=== PATIENT | female | born 1990 | race Caucasian/White ===

== ENCOUNTER 2017-06-11 21:12 | Inpatient (IN) | payer OTHER ==
[2017-06-11 23:18] LABS: ABNORMAL IP MESSAGE 1; HEMATOCRIT 40.5 % (37.0-47.0); HEMOGLOBIN 13.6 g/dl (12.0-16.0); MEAN CORPUSCULAR HEMOGLOBIN 27.9 pg (29.0-33.0); MEAN CORPUSCULAR HGB CONC 33.6 g/dl (32.0-37.0); MEAN PLATELET VOLUME 9.9 fl (7.4-10.4); PLATELET COUNT 298 10^3/UL (140-415); RED BLOOD COUNT 4.88 10^6/ul (4.20-5.40); RED CELL DISTRIBUTION WIDTH 13.7 % (11.5-14.5)
[2017-06-11 23:18] LABS: WHITE BLOOD COUNT 22.4 10^3/ul (4.8-10.8)
[2017-06-11] MEDS: ONDANSETRON 4 MG INJ IV (23:19)
[2017-06-11] MEDS: KETOROLAC 30 MG INJ IV (23:19)
[2017-06-11] MEDS: ACETAMINOPHEN 325 MG TAB PO (23:20)
[2017-06-11] MEDS: SOD CHLORIDE 0.9% 1,000 ML IV (23:20)
[2017-06-11] MEDS: morphine 4 MG/ML VIAL IV (23:20)
[2017-06-11 23:23] LABS: ADD MAN DIFF? YES; POSITIVE DIFF @See below
[2017-06-11 23:45] LABS: ALANINE AMINOTRANSFERASE 30 IU/L (13-69); ALBUMIN 4.5 g/dl (3.3-4.9); ALKALINE PHOSPHATASE 100 IU/L (42-121); ANION GAP 16 (8-16); ASPARTATE AMINO TRANSFERASE 17 IU/L (15-46); BILIRUBIN,INDIRECT 0.1 mg/dl (0-1.1); BILIRUBIN,TOTAL 0.1 mg/dl (0.2-1.3); BLOOD UREA NITROGEN 15 mg/dl (7-20); CALCIUM 9.4 mg/dl (8.4-10.2); CARBON DIOXIDE 23 mmol/L (21-31); CHLORIDE 105 mmol/L (97-110); CREATININE 0.62 mg/dl (0.44-1.00); GLUCOSE 111 mg/dl (70-220); LIPASE 102 U/L (23-300); POTASSIUM 3.8 mmol/L (3.5-5.1); SODIUM 140 mmol/L (135-144); TOTAL PROTEIN 7.5 g/dl (6.1-8.1)
[2017-06-12 00:29] LABS: ANISOCYTOSIS 2+ (0-0); BAND NEUTROPHILS #M 0.8 10^3/ul (0.0-0.6); BAND NEUTROPHILS % (M) 4 % (0-4); LYMPHOCYTES #M 0.6 10^3/ul (0.8-2.9); LYMPHOCYTES % (M) 3 % (15-51); MICROCYTOSIS 2+ (0-0); MONOCYTE #M 0.6 10^3/ul (0.3-0.9); MONOCYTES % (M) 3 % (0-11); PLATELET ESTIMATE NORMAL; PROMYELOCYTES #M 0.2 10^3/ul (0-0); PROMYELOCYTES % (M) 1 % (0-0); SEG NEUT #M 20.1 10^3/ul (1.6-7.5); SEGMENTED NEUTROPHILS (M) % 89 % (39-77); SMUDGE%M 1 % (0-0)
[2017-06-12] MEDS ORDERED: DOCUSATE SODIUM 100 MG CAP PO (02:30)
[2017-06-12] MEDS ORDERED: ACETAMINOPHEN 325 MG TAB PO ×2 (02:30→12:30)
[2017-06-12] MEDS ORDERED: BISACODYL (EC) 5 MG TAB PO (02:30)
[2017-06-12] MEDS ORDERED: LORAZEPAM 2 MG INJ IV (02:30)
[2017-06-12] MEDS ORDERED: HYDROCODONE/APAP (5/325) TAB PO (02:30)
[2017-06-12] MEDS ORDERED: KETOROLAC 30 MG INJ IV (03:00)
[2017-06-12] MEDS: SOD CHLORIDE 0.9% IV (03:06)
[2017-06-12] MEDS: ONDANSETRON 4 MG INJ IV ×3 (03:17→13:20)
[2017-06-12] MEDS: HYDROmorphONE 0.5 MG/0.5 ML SYG IV (03:18)
[2017-06-12 03:26] LABS: LACTIC ACID 0.7 mmol/L (0.5-2.0)
[2017-06-12] MEDS: PANTOPRAZOLE 40 MG INJ IV (05:08)
[2017-06-12] MEDS: PIPER-TAZO 3.375 GM IV (PMX) 50 ML IVPB ×2 (05:08→12:00)
[2017-06-12] MEDS: SOD CHLORIDE 0.9% 1,000 ML IV ×4 (05:09→19:58)
[2017-06-12] MEDS ORDERED: metroNIDAZOLE 500 MG/NS (PMX) 100 ML IVPB ×2 (06:00→17:30)
[2017-06-12] MEDS: metroNIDAZOLE 500 MG/NS (PMX) 100 ML IVPB ×3 (06:00→23:31)
[2017-06-12] MEDS ORDERED: SUCCINYLCHOLINE CHLORIDE 100 MG/5 ML SYG IV (07:00)
[2017-06-12] MEDS ORDERED: NEOSTIGMINE 3 MG/3 ML SYRINGE (12:06)
[2017-06-12] MEDS ORDERED: ROCURONIUM 50 MG INJ (12:06)
[2017-06-12] MEDS ORDERED: DEXAMETHASONE 4 MG/ML 1 ML INJ (12:06)
[2017-06-12] MEDS ORDERED: ONDANSETRON 4 MG INJ ×2 (12:06→12:44)
[2017-06-12] MEDS ORDERED: PROPOFOL 20 ML (12:06)
[2017-06-12] MEDS ORDERED: MIDAZOLAM 1 MG/ML 2 ML INJ (12:06)
[2017-06-12] MEDS ORDERED: GLYCOPYRROLATE 0.4 MG INJ (12:06)
[2017-06-12] MEDS ORDERED: FENTAnyl 50 MCG/ML VIAL ×2 (12:06→12:58)
[2017-06-12] MEDS ORDERED: CEFAZOLIN 1 GM INJ (12:06)
[2017-06-12] MEDS ORDERED: morphine 2 MG INJ IV (12:30)
[2017-06-12] MEDS ORDERED: OXYCODONE/ACETAMINOPHEN (5/325) TAB PO ×3 (12:30→13:30)
[2017-06-12] MEDS: BUPIVACAINE 0.5%/EPI (SDV) 30 ML INJ INJ (12:36)
[2017-06-12] MEDS ORDERED: SUGAMMADEX SODIUM 200 MG/2 ML VIAL IV (12:39)
[2017-06-12] MEDS ORDERED: KETOROLAC 30 MG INJ (12:49)
[2017-06-12] MEDS: FENTAnyl 50 MCG/ML VIAL IV (13:23)
[2017-06-12] MEDS ORDERED: HYDROmorphONE (0.2 MG/ML) 10ML SYG IV ×3 (13:30)
[2017-06-12] MEDS ORDERED: MIDAZOLAM 1 MG/ML 2 ML INJ IV (13:30)
[2017-06-12] MEDS ORDERED: MEPERIDINE 25 MG INJ IV (13:30)
[2017-06-12] MEDS ORDERED: ALBUTEROL 0.083% (NEB) 2.5 MG/3 ML AMP HHN (13:30)
[2017-06-12] MEDS ORDERED: ONDANSETRON 4 MG INJ IV (13:30)
[2017-06-12] MEDS ORDERED: hydrALAzine 20 MG INJ IV (13:30)
[2017-06-12] MEDS ORDERED: TRIMETHOBENZAMIDE 100 MG/ML VIAL IM (13:30)
[2017-06-12] MEDS ORDERED: FENTAnyl 50 MCG/ML VIAL IV ×3 (13:30)
[2017-06-12] MEDS ORDERED: IPRATROPIUM (NEB) 0.5 MG/2.5 ML AMP HHN (13:30)
[2017-06-12] MEDS ORDERED: LABETALOL HCL 20MG INJ IV (13:30)
[2017-06-12] MEDS ORDERED: EPHEDrine SULFATE 50 MG/5 ML SYG IV (13:30)
[2017-06-12] MEDS ORDERED: DIPHENHYDRAMINE 50 MG INJ IV (13:30)
[2017-06-12] MEDS: D5W-0.45 NACL + KCL 20 MEQ 1,000 ML IV (14:33)
[2017-06-12] MEDS: KETOROLAC 15 MG INJ IV ×3 (14:35→23:32)
[2017-06-12] MEDS: VANCOMYCIN HCL 250 MG/5ML POSYG PO ×2 (18:40→23:31)
[2017-06-13] MEDS: PANTOPRAZOLE 40 MG INJ IV ×2 (00:23→05:36)
[2017-06-13] MEDS: CALCIUM CARBONATE 500 MG CHEW TAB PO ×3 (00:23→12:08)
[2017-06-13] MEDS: SOD CHLORIDE 0.9% 1,000 ML IV ×4 (00:40→14:00)
[2017-06-13 05:06] LABS: ADD MAN DIFF? NO
[2017-06-13 05:15] LABS: WHITE BLOOD COUNT 9.8 10^3/ul (4.8-10.8)
[2017-06-13 05:15] LABS: BASOPHILS % 0.1 % (0.0-2.0); HEMATOCRIT 34.4 % (37.0-47.0); HEMOGLOBIN 11.4 g/dl (12.0-16.0); LYMPHOCYTES # 1.2 10^3/ul (0.8-2.9); LYMPHOCYTES % 12.3 % (15.0-51.0); MEAN CORPUSCULAR HEMOGLOBIN 27.9 pg (29.0-33.0); MEAN CORPUSCULAR HGB CONC 33.1 g/dl (32.0-37.0); MEAN CORPUSCULAR VOLUME 84.3 fl (82.0-101.0); MEAN PLATELET VOLUME 9.8 fl (7.4-10.4); MONOCYTE # 0.5 10^3/ul (0.3-0.9); MONOCYTES % 4.8 % (0.0-11.0); NEUTROPHILS % 82.4 % (39.0-77.0); PLATELET COUNT 263 10^3/UL (140-415); RED BLOOD COUNT 4.08 10^6/ul (4.20-5.40); RED CELL DISTRIBUTION WIDTH 14.4 % (11.5-14.5)
[2017-06-13] MEDS: VANCOMYCIN HCL 250 MG/5ML POSYG PO (05:35)
[2017-06-13] MEDS: metroNIDAZOLE 500 MG/NS (PMX) 100 ML IVPB (05:36)
[2017-06-13] MEDS: KETOROLAC 15 MG INJ IV (05:37)
[2017-06-13 05:43] LABS: ALANINE AMINOTRANSFERASE 26 IU/L (13-69); ALBUMIN 3.3 g/dl (3.3-4.9); ALBUMIN/GLOBULIN RATIO 1.06; ALKALINE PHOSPHATASE 74 IU/L (42-121); ANION GAP 13 (8-16); ASPARTATE AMINO TRANSFERASE 16 IU/L (15-46); BLOOD UREA NITROGEN 3 mg/dl (7-20); CALCIUM 8.3 mg/dl (8.4-10.2); CARBON DIOXIDE 24 mmol/L (21-31); CHLORIDE 113 mmol/L (97-110); CREATININE 0.53 mg/dl (0.44-1.00); GLUCOSE 105 mg/dl (70-220); POTASSIUM 3.3 mmol/L (3.5-5.1); SODIUM 147 mmol/L (135-144); TOTAL PROTEIN 6.4 g/dl (6.1-8.1)
[2017-06-13] MEDS: ENOXAPARIN 40 MG/0.4 ML SYG SC (06:19)
[2017-06-13] MEDS: POTASSIUM CHLORIDE (SR) 20 MEQ TAB PO (12:08)
[2017-06-13] MEDS: metroNIDAZOLE 500 MG TAB PO (14:38)
== END 2017-06-13 15:06 | disposition home or self-care (01) | DRG 854 ==
LOC: FTE 21:12 → REC 06-12 02:32 → MS1 06-12 14:17
PROC: 0DTJ4ZZ Resection of Appendix, Percutaneous Endoscopic Approach (ICD-10-PCS; principal; 2017-06-12 12:00)
DX: A41.51 Sepsis due to Escherichia coli [E. coli] (principal); K35.80 Unspecified acute appendicitis; A04.72 Enterocolitis due to Clostridium difficile, not specified as recurrent; R11.2 Nausea with vomiting, unspecified; E87.6 Hypokalemia
CPT/HCPCS: 74176; 76856; 80053; 81025; 83605; 83690; 83735; 85025; 86850; 86900; 86901; 87040; 87075; 87400; 88304

== ENCOUNTER 2017-06-24 08:40 | Emergency (ER) | payer OTHER ==
[2017-06-24] MEDS: predniSONE 20 MG TAB PO (09:32)
[2017-06-24] MEDS: DIPHENHYDRAMINE 50 MG INJ IM (09:32)
== END 2017-06-24 09:36 | disposition home or self-care (01) ==
LOC: FTE 08:40
DX: L53.9 Erythematous condition, unspecified (principal); T37.3X5A Adverse effect of other antiprotozoal drugs, initial encounter
CPT/HCPCS: 96372; 99284-25

== ENCOUNTER 2017-06-26 21:34 | Emergency (ER) | payer OTHER ==
[2017-06-26] MEDS: METHYLPREDNISOLONE 125 MG INJ IM (22:26)
[2017-06-26] MEDS: DIPHENHYDRAMINE 50 MG INJ IM (22:28)
[2017-06-26] MEDS: FAMOTIDINE 20 MG TAB PO (22:33)
== END 2017-06-26 23:53 | disposition home or self-care (01) ==
LOC: FTE 21:34
DX: L50.9 Urticaria, unspecified (principal)
CPT/HCPCS: 96372; 99284-25